=== PATIENT | male | born 1980 | race American Indian/Alaskan Native ===

== ENCOUNTER 2017-03-31 03:20 | Inpatient (IN) | payer MEDICAID, OTHER ==
[2017-03-31 03:20] VITALS: BMI 23.1
[2017-03-31 04:32] LABS: BASO % 0.3 % (0.0-2.0); EOS # 0.1 K/uL (0.0-0.7); EOS % 2.1 % (0.0-4.0); HEMOGLOBIN 10.1 g/dL (12.0-18.0); LYMPH # 1.1 K/uL (1.0-4.3); LYMPH % 25.2 % (20.0-40.0); MEAN CELL VOLUME 85.8 fL (80.0-94.0); MEAN CORPUSCULAR HEMOGLOBIN 27.3 pg (27.0-31.0); MEAN CORPUSCULAR HGB CONC 31.8 g/dL (33.0-37.0); MEAN PLATELET VOLUME 9.6 fL (7.2-11.7); MONO # 0.6 K/uL (0.0-0.8); MONO % 12.7 % (0.0-10.0); NEUT # 2.6 K/uL (1.8-7.0); NEUT % 59.7 % (50.0-75.0); RBC 3.69 Mil/uL (4.40-5.90); RED CELL DISTRIBUTION WIDTH 15.5 % (11.5-14.5); WHITE BLOOD COUNT 4.4 K/uL (4.8-10.8)
[2017-03-31 04:41] LABS: ALBUMIN 3.6 g/dL (3.5-5.0)
[2017-03-31 04:44] LABS: ALB/GLOB RATIO 0.9 (1.0-2.1); ALT/SGPT 18 U/L (21-72); AST/SGOT 38 U/L (17-59); BLOOD UREA NITROGEN 16 mg/dL (9-20); CALCIUM 8.8 mg/dl (8.6-10.4); GFR AFRICAN-AMERICAN > 60; GFR NON-AFRICAN AMERICAN > 60
[2017-03-31] MEDS ORDERED: Potassium Chloride 20 mEq ER Tab PO STA (05:36)
[2017-03-31] MEDS ORDERED: Potassium Chloride 20 mEq ER Tab PO ONE (05:43)
[2017-03-31 05:53] LABS: URINE BACTERIA RARE (<OCC); URINE BILIRUBIN NEGATIVE (NEGATIVE); URINE BLOOD NEGATIVE (NEGATIVE); URINE CLARITY Clear (Clear); URINE COLOR Yellow (YELLOW); URINE GLUCOSE (UA) 1+ mg/dL (Normal); URINE LEUKOCYTE ESTERASE NEG Leu/uL (Negative); URINE NITRATE NEGATIVE (NEGATIVE); URINE PROTEIN NEGATIVE (NEGATIVE); URINE UROBILINOGEN NORMAL mg/dL (0.2-1.0)
[2017-03-31 06:00] LABS: BARBITURATES, UR NEGATIVE (NEGATIVE); BENZODIAZEPINES, UR NEGATIVE (NEGATIVE)
--- NOTE | 2017-03-31 06:00 | C.PDOC ---
History Of Present Illness A 36 y/o male with a Hx of bipolar disorder, comes in feeling depressed and asking to be evaluated. Denies suicidal or homicidal ideation, or any physical complaints. Time Seen by Provider: 03/31/17 04:18 Chief Complaint (Nursing): Psychiatric Evaluation History Per: Patient History/Exam Limitations: no limitations Onset/Duration Of Symptoms: Hrs Current Symptoms Are (Timing): Still Present Suicide/Self Injury Attempted (Context): None Modifying Factor(s): None Severity: Mild Associated Symptoms: Depression. denies: Suicidal Thoughts, Suicidal Plan Involuntary Hold By: None Recent travel outside of the [place]: No Additional History Per: Patient Past Medical History Reviewed: Historical Data, Nursing Documentation, Vital Signs Vital Signs: Last Vital Signs Temp 97.7 F 03/31/17 03:31 Pulse 93 H 03/31/17 03:31 Resp 20 03/31/17 03:31 BP 126/78 03/31/17 03:31 Pulse Ox 97 03/31/17 06:01 - Medical History PMH: Anemia, Anxiety, Bipolar Disorder, Depression, HIV, HTN, Mitral Valve Prolapse, Schizophrenia, Seizures, Sickle Cell Disease, Sexually Transmitted Disease (hx syphillis and gonnorhea) Denies: Diabetes, Hepatitis, Chronic Kidney Disease - [facility] Procedures GROUP PSYCHOTHERAPY (10/15/16) INDIV PSYCHOTHERAPY FOR SUBSTANCE ABUSE TREATMENT, SUPPORT (04/29/16) INDIVIDUAL PSYCHOTHERAPY, SUPPORTIVE (06/22/16) MEDICATION MANAGEMENT (10/15/16) MEDS MGMT FOR SUBSTANCE ABUSE TREATMENT, ANTABUSE (04/29/16) Family History: States: Unknown Family Hx - Social History Hx Tobacco Use: No Hx Alcohol Use: No Hx Substance Use: Yes (crystal meth friday) - Immunization History Hx Tetanus Toxoid Vaccination: Yes Hx Influenza Vaccination: Yes Hx Pneumococcal Vaccination: Yes Review Of Systems Except As Marked, All Systems Reviewed And Found Negative. Constitutional: Negative for: Fever, Chills Cardiovascular: Negative for: Chest Pain Gastrointestinal: Negative for: Nausea, Vomiting, Abdominal Pain, Diarrhea Psych: Positive for: Depression. Negative for: Suicidal ideation, Other ( Homicidal ideation) Physical Exam - Physical Exam Appears: Non-toxic, No Acute Distress Skin: Warm, Dry Head: Atraumatic, Normacephalic Eye(s): bilateral: Normal Inspection Cardiovascular: Rhythm Regular Respiratory: Normal Breath Sounds, No Accessory Muscle Use, No Rales, No Rhonchi , No Wheezing Gastrointestinal/Abdominal: Soft, No Tenderness Neurological/Psych: Oriented x3, Normal Speech, Other (Awake and alert) ED Course And Treatment - Laboratory Results Result Diagrams: 03/31/17 04:29 03/31/17 04:29 O2 Sat by Pulse Oximetry: 97 (RA) Pulse Ox Interpretation: Normal Progress Note: Impression: A 36 y/o male comes in feeling depressed and asking to be evaluated. Plans: Blood labs, IV fluids, reassess. Pending crisis evaluation. Pt is in no acute distress at this time and is resting comfortably. Pt was instructed to follow up with PMD or clinic and return if symtpoms worsens. Disposition - Disposition Disposition Time: 06:48 Condition: STABLE - Clinical Impression Clinical Impression: Depression - Scribe Statement The provider has reviewed the documentation as recorded by the Scribe Nettie henry All medical record entries made by the Scribe were at my direction and personally dictated by me. I have reviewed the chart and agree that the record accurately reflects my personal performance of the history, physical exam, medical decision making, and the department course for this patient. I have also personally directed, reviewed, and agree with the discharge instructions and disposition. Physician Patient Turnover Patient Signed Over To: Karen Driver Handoff Comments: Pending crisis evaluation
[2017-03-31 06:02] LABS: OPIATES, UR NEGATIVE (NEGATIVE)
[2017-03-31 06:03] LABS: PHENCYCLIDINE, UR NEGATIVE (NEGATIVE)
[2017-03-31 07:18] VITALS: O2SAT 100
[2017-03-31] MEDS ORDERED: Bisacodyl 5mg EC Tab PO ONE (11:44)
[2017-03-31] MEDS: Divalproex 500 mg DR Tab PO SCH ×2 (12:08→18:25)
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
[2017-03-31] MEDS: GENVOYA PO SCH (15:49)
[2017-04-01] MEDS: Divalproex 500 mg DR Tab PO SCH ×2 (09:33→17:56)
[2017-04-01] MEDS: GENVOYA PO SCH (09:33)
--- NOTE | 2017-04-01 12:42 | PCM.PYCHPN ---
Psychiatric Progress Note - Psychiatric Progress Note Patient seen today, length of contact: 16 min Patient Chief Complaint: I am feeling lilly Problems Identified/Issues Discussed: Patient seen and evaluated, chart reviewed and discussed with the nurse. Patient remained disorganized and internally preoccupied. Patient remained isolated, confined and withdrawn. Patient still appears paranoid and delusional. He reports depressed mood but denies any feelings of hopelessness and helplessness. He is taking medication and denies any side effects. Supportive therapy and psychoeducation were given. Medication Change: No Medical Record Reviewed: Yes Mental Status Examination - Cognitive Function Orientation: Person, Place, Situation, Time Memory: Intact Attention: Poor Concentration: Poor Association: Loose Fund of Knowledge: Poor - Mood Mood: Depressed, Anxious - Affect Affect: Constricted, Depressed - Speech Speech: Soft - Formal Thought Process Formal Thought Process: Delusions, Paranoia, Loosening of associations - Suicidal Ideation Suicidal Ideation: No - Homicidal Ideation Homicidal Ideation: No Goal/Treatment Plan - Goal/Treatment Plan Need for Continued Stay: Discharge may exacerbated symptoms, Severe functional impairment Progress Toward Problem(s) and Goals/Treatment Plan: Schizoaffective disorder - depressed type Methamphetamine use d/o - severe/moderate Personality d/o - unspecified Schizoaffective/Depression: -CBt and supportive tx -Attend groups -Lexapro -Depakote -Support and psychoed Methamphetamine: -Support and psychoed -Attend groups and activities -VT for abstinence - Smoking Cessation Smoking Cessation Initiated: No
[2017-04-02] MEDS: GENVOYA PO SCH (11:20)
[2017-04-02] MEDS: Divalproex 500 mg DR Tab PO SCH ×2 (11:20→17:30)
--- NOTE | 2017-04-02 14:57 | PCM.PYCHPN ---
Psychiatric Progress Note - Psychiatric Progress Note Patient seen today, length of contact: 17 min Patient Chief Complaint: "I am feeling okay. I am a tired and congested." Problems Identified/Issues Discussed: The pt is seen, chart reviewed, case discussed with staff. Pt attended group today but did not attend yesterday. There is concern about living situation post dispatch due to the restraining order against the pt from his landlord. He has a court date in May. Pt plans to return to [facility]. He doesn't have a therapist at the moment but plans on seeing one. Support given, CBT and [place] used briefly. No new symptoms reported, improving but needs more time to stabilize. After care discussed, support and psychoeducation given. Medication Change: Yes Medical Record Reviewed: Yes Mental Status Examination - Cognitive Function Orientation: Person, Place, Situation, Time Memory: Intact Attention: WNL Concentration: Poor Association: WNL Fund of Knowledge: WNL - Mood Mood: Depressed, Anxious - Affect Affect: Constricted, Depressed - Speech Speech: Appropriate - Formal Thought Process Formal Thought Process: No Impairment - Suicidal Ideation Suicidal Ideation: No - Homicidal Ideation Homicidal Ideation: No Goal/Treatment Plan - Goal/Treatment Plan Need for Continued Stay: Discharge may exacerbated symptoms, Severe functional impairment Progress Toward Problem(s) and Goals/Treatment Plan: Schizoaffective disorder - depressed type Methamphetamine use d/o - severe/moderate Personality d/o - unspecified Schizoaffective/Depression: -CBt and supportive tx -Attend groups -Lexapro -Depakote -Support and psychoed Methamphetamine: -Support and psychoed -Attend groups and activities -IN for abstinence Estimated Date of D/C: 04/04/17
[2017-04-02] MEDS ORDERED: Magnesium Hydroxide Susp 30 ml UD PO ONE (18:00)
[2017-04-03 08:51] LABS: BASO % 0.6 % (0.0-2.0); EOS # 0.1 K/uL (0.0-0.7); EOS % 0.8 % (0.0-4.0); HEMOGLOBIN 11.9 g/dL (12.0-18.0); LYMPH # 1.3 K/uL (1.0-4.3); LYMPH % 18.3 % (20.0-40.0); MEAN CELL VOLUME 85.4 fL (80.0-94.0); MEAN CORPUSCULAR HEMOGLOBIN 27.6 pg (27.0-31.0); MEAN CORPUSCULAR HGB CONC 32.3 g/dL (33.0-37.0); MEAN PLATELET VOLUME 9.8 fL (7.2-11.7); MONO # 0.4 K/uL (0.0-0.8); MONO % 5.5 % (0.0-10.0); NEUT # 5.2 K/uL (1.8-7.0); NEUT % 74.8 % (50.0-75.0); NRBC % 0.1 % (0.0-2.0); RBC 4.29 Mil/uL (4.40-5.90); RED CELL DISTRIBUTION WIDTH 15.5 % (11.5-14.5)
[2017-04-03 09:04] LABS: ALBUMIN 3.8 g/dL (3.5-5.0)
[2017-04-03 09:06] LABS: GFR AFRICAN-AMERICAN > 60; GFR NON-AFRICAN AMERICAN > 60
[2017-04-03 09:07] LABS: ALB/GLOB RATIO 0.7 (1.0-2.1); ALT/SGPT 22 U/L (21-72); AST/SGOT 28 U/L (17-59); BLOOD UREA NITROGEN 18 mg/dL (9-20)
[2017-04-03 09:08] LABS: CALCIUM 9.1 mg/dl (8.6-10.4)
[2017-04-03] MEDS ORDERED: Pneumococcal 23-Valent Vaccine IM ONE (10:00)
[2017-04-03] MEDS: Divalproex 500 mg DR Tab PO SCH ×2 (11:16→22:35)
--- NOTE | 2017-04-03 15:24 | PCM.PYCHPN ---
Psychiatric Progress Note - Psychiatric Progress Note Patient seen today, length of contact: 16 min Patient Chief Complaint: "I am feeling okay, but I am still constipated. I am also worried about where to live after this." Problems Identified/Issues Discussed: The pt is seen, chart reviewed, case discussed with staff. Pt requests more medication for his constipation. He took his medications in the afternoon and said that he slept well. He is still very concerned about where to live after he is discharged and he has yet to reach out to his friends. Pt still plans to return to [facility]. Support given, CBT and PA used briefly. No new symptoms reported, improving slowly and needs more time. After care discussed, support and psychoeducation given. Medication Change: Yes Medical Record Reviewed: Yes Mental Status Examination - Cognitive Function Orientation: Person, Place, Situation, Time Memory: Intact Attention: WNL Concentration: WNL Association: WNL Fund of Knowledge: WNL - Mood Mood: Anxious - Affect Affect: Constricted - Speech Speech: Appropriate - Formal Thought Process Formal Thought Process: No Impairment - Suicidal Ideation Suicidal Ideation: No - Homicidal Ideation Homicidal Ideation: No Goal/Treatment Plan - Goal/Treatment Plan Need for Continued Stay: Discharge may exacerbated symptoms Progress Toward Problem(s) and Goals/Treatment Plan: Schizoaffective disorder - depressed type Methamphetamine use d/o - severe/moderate Personality d/o - unspecified Schizoaffective/Depression: -CBt and supportive tx -Attend groups -Lexapro -Depakote -Support and psychoed -[facility] Methamphetamine: -Support and psychoed -Attend groups and activities -PA for abstinence Estimated Date of D/C: 04/04/17
[2017-04-04] MEDS: GENVOYA PO SCH (09:47)
[2017-04-04] MEDS: Divalproex 500 mg DR Tab PO SCH ×2 (09:47→17:24)
--- NOTE | 2017-04-04 14:17 | PCM.PYCHPN ---
Psychiatric Progress Note - Psychiatric Progress Note Patient seen today, length of contact: 17 min Patient Chief Complaint: "I had a nosebleed in the night but right now I'm feeling okay. I'm still worried about my living situation after I leave." Problems Identified/Issues Discussed: The pt is seen, chart reviewed, case discussed with staff. Pt had epistaxis in the middle of the night. BP was checked and was slightly low. He took his medications yesterday afternoon and said that he slept well. He is still very concerned about where to live after he is discharged and he has yet to reach out to his friends. He wishes to go back to his apartment to get his phone and wants to see if he can still live there. He will follow up with SW to discuss next steps. Pt still plans to return to [facility]. Support given, CBT and [place] used briefly. No new symptoms reported, improving slowly and needs more time. After care discussed, support and psychoeducation given. Medication Change: Yes (Detox changes daily.) Medical Record Reviewed: Yes Mental Status Examination - Cognitive Function Orientation: Person, Place, Situation, Time Memory: Intact Attention: WNL Concentration: WNL Association: WNL Fund of Knowledge: WNL - Mood Mood: Anxious - Affect Affect: Constricted - Speech Speech: Appropriate - Formal Thought Process Formal Thought Process: No Impairment - Suicidal Ideation Suicidal Ideation: No - Homicidal Ideation Homicidal Ideation: No Goal/Treatment Plan - Goal/Treatment Plan Need for Continued Stay: Discharge may exacerbated symptoms Progress Toward Problem(s) and Goals/Treatment Plan: Schizoaffective disorder - depressed type Methamphetamine use d/o - severe/moderate Personality d/o - unspecified Schizoaffective/Depression: -CBt and supportive tx -Attend groups -Lexapro -Depakote -Support and psychoed -[facility] Methamphetamine: -Support and psychoed -Attend groups and activities -UT for abstinence Estimated Date of D/C: 04/07/17 If changed, why: Discharge may exacerbate symptoms
[2017-04-05] MEDS: Divalproex 500 mg DR Tab PO SCH ×2 (12:11→17:10)
--- NOTE | 2017-04-05 17:26 | PCM.PYCHPN ---
Psychiatric Progress Note - Psychiatric Progress Note Patient seen today, length of contact: 15 min Patient Chief Complaint: "I don't feel well" Problems Identified/Issues Discussed: The pt is seen, chart reviewed, case discussed with staff. Support given, CBT and MS used briefly re meth use No new symptoms reported, improving slowly and needs some more time No SEs from medications, risks discussed. After care discussed - still undecided about where he will live due to order of protection against him Medication Change: Yes (Detox changes daily.) Medical Record Reviewed: Yes Mental Status Examination - Cognitive Function Orientation: Person, Place, Situation, Time Memory: Intact Attention: WNL Concentration: WNL Association: WNL Fund of Knowledge: WNL - Mood Mood: Anxious - Affect Affect: Constricted - Speech Speech: Appropriate - Formal Thought Process Formal Thought Process: No Impairment - Suicidal Ideation Suicidal Ideation: No - Homicidal Ideation Homicidal Ideation: No Goal/Treatment Plan - Goal/Treatment Plan Need for Continued Stay: Discharge may exacerbated symptoms Progress Toward Problem(s) and Goals/Treatment Plan: Schizoaffective disorder - depressed type Methamphetamine use d/o - severe/moderate Personality d/o - unspecified Schizoaffective/Depression: -CBt and supportive tx -Attend groups -[facility] -Support and psychoed -[facility] Methamphetamine: -Support and psychoed -Attend groups and activities -MS for abstinence Estimated Date of D/C: 04/07/17
[2017-04-06] MEDS: Divalproex 500 mg DR Tab PO SCH ×2 (10:24→20:28)
[2017-04-06] MEDS: GENVOYA PO SCH (10:31)
--- NOTE | 2017-04-06 16:57 | PCM.PYCHPN ---
Psychiatric Progress Note - Psychiatric Progress Note Patient seen today, length of contact: 15 min Patient Chief Complaint: I'm good. Can go home today. Problems Identified/Issues Discussed: Patient seen. Chart reviewed. Case discussed with the staff. Issues related to illness and treatment were discussed with the patient. Reported compliant with treatment with no adverse affects. At the time of evaluation, patient was awake alert oriented 3, had no delusions, no auditory or visual hallucinations, no suicidal ideations or homicidal ideations. Patient had no new symptoms. Medical Problems: HIV Hemolytic anemia Diagnostic Results: Reviewed DSM 5 Symptoms Update: Improving with treatment Medication Change: No Medical Record Reviewed: Yes Mental Status Examination - Cognitive Function Orientation: Person, Place, Situation, Time Memory: Intact Attention: WNL Concentration: WNL Association: WNL Fund of Knowledge: WN Decription of patient's judgement and insights: Fair - Mood Mood: Neutral - Affect Affect: Constricted - Speech Speech: Appropriate - Formal Thought Process Formal Thought Process: No Impairment - Suicidal Ideation Suicidal Ideation: No - Homicidal Ideation Homicidal Ideation: No Goal/Treatment Plan - Goal/Treatment Plan Need for Continued Stay: Remain at risks for inpatient hospitalization, Discharge may exacerbated symptoms, Severe functional impairment Progress Toward Problem(s) and Goals/Treatment Plan: Patient education Supportive therapy Continue treatment as before Estimated Date of D/C: 04/07/17 - Smoking Cessation Smoking Cessation Initiated: No
[2017-04-07 09:38] VITALS: RESP 18
[2017-04-07] MEDS: GENVOYA PO SCH (10:08)
[2017-04-07] MEDS: Divalproex 500 mg DR Tab PO SCH ×2 (10:08→18:05)
--- NOTE | 2017-04-07 14:30 | PCM.PYCHPN ---
Psychiatric Progress Note - Psychiatric Progress Note Patient seen today, length of contact: 17 min Patient Chief Complaint: "I am feeling okay but I had another nosebleed." Problems Identified/Issues Discussed: The pt is seen, chart reviewed, case discussed with staff. Support given, CBT and [place] used briefly. No new symptoms reported, improving slowly and needs some more time No SEs from medications, risks discussed. After care discussed - still undecided about where he will live due to order of protection against him Medication Change: No Medical Record Reviewed: Yes Mental Status Examination - Cognitive Function Orientation: Person, Place, Situation, Time Memory: Intact Attention: WNL Concentration: WNL Association: [facility] Fund of Knowledge: WN - Mood Mood: Neutral - Affect Affect: Constricted - Speech Speech: Appropriate - Formal Thought Process Formal Thought Process: No Impairment - Suicidal Ideation Suicidal Ideation: No - Homicidal Ideation Homicidal Ideation: No Goal/Treatment Plan - Goal/Treatment Plan Need for Continued Stay: Remain at risks for inpatient hospitalization, Discharge may exacerbated symptoms, Severe functional impairment Progress Toward Problem(s) and Goals/Treatment Plan: Schizoaffective disorder - depressed type Methamphetamine use d/o - severe/moderate Personality d/o - unspecified Schizoaffective/Depression: -CBt and supportive tx -[facility] -[facility] and psychoed -[facility] Methamphetamine: -Support and psychoed -Attend groups and activities -CO for abstinence Estimated Date of D/C: 04/08/17 If changed, why: Discharge may exacerbate symptoms.
[2017-04-08 07:59] VITALS: BP 124/84; PULSE 96; TEMP 98.4
[2017-04-08] MEDS: GENVOYA PO SCH (09:29)
[2017-04-08] MEDS: Divalproex 500 mg DR Tab PO SCH (09:29)
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
== END 2017-04-08 11:07 | disposition home or self-care (01) | DRG 430 ==
LOC: C.ER 03:20 → C.5E 07:45
PROVIDERS: ADMIT Psychiatry & Neurology Psychiatry; ATTEND Psychiatry & Neurology Psychiatry
PROC: GZHZZZZ Group Psychotherapy (ICD-10-PCS; principal; 2017-03-31)
PROC: GZ58ZZZ Individual Psychotherapy, Cognitive-Behavioral (ICD-10-PCS; 2017-03-31)
PROC: GZ56ZZZ Individual Psychotherapy, Supportive (ICD-10-PCS; 2017-03-31)
DX: F25.1 Schizoaffective disorder, depressive type (principal); D58.9 Hereditary hemolytic anemia, unspecified; F15.90 Other stimulant use, unspecified, uncomplicated; Z21 Asymptomatic human immunodeficiency virus [HIV] infection status; Z91.14 Patient's other noncompliance with medication regimen; F41.9 Anxiety disorder, unspecified; R04.0 Epistaxis; R45.6 Violent behavior

== ENCOUNTER 2017-09-11 03:15 | Inpatient (IN) | payer MEDICAID, OTHER ==
[2017-09-11 03:16] VITALS: BMI 23.1
--- NOTE | 2017-09-11 03:47 | C.PDOC ---
History Of Present Illness The patient presents to the ED for psychiatric evaluation, stating he has been feeling anxious and depressed for a couple days. Patient was evaluated at [facility] for diarrhea and HIV (currently not taking medicine) . Patient was found to have viral load of 40. Patient denies fever, chills, suicidal/homicidal ideation at this time. Time Seen by Provider: 09/11/17 03:46 Chief Complaint (Nursing): Psychiatric Evaluation History Per: Patient History/Exam Limitations: no limitations Onset/Duration Of Symptoms: Days Current Symptoms Are (Timing): Still Present Suicide/Self Injury Attempted (Context): None Modifying Factor(s): None Severity: None Pain Scale Rating Of: 0 Associated Symptoms: Anxiety, Depression. denies: Suicidal Thoughts, Suicidal Plan Involuntary Hold By: None Recent travel outside of the [place]: No Additional History Per: Patient Past Medical History Reviewed: Historical Data, Nursing Documentation, Vital Signs - Medical History PMH: Anemia, Anxiety, Bipolar Disorder, Depression, HIV, HTN, Schizophrenia, Seizures, Sickle Cell Disease, Sexually Transmitted Disease Denies: Diabetes, Hepatitis, Chronic Kidney Disease Comment Only: Mitral Valve Prolapse (mv regurgitation) Surgical History: No Surg Hx - [facility] Procedures GROUP PSYCHOTHERAPY (03/31/17) INDIV PSYCHOTHERAPY FOR SUBSTANCE ABUSE TREATMENT, SUPPORT (04/29/16) INDIVIDUAL PSYCHOTHERAPY, COGNITIVE-BEHAVIORAL (03/31/17) INDIVIDUAL PSYCHOTHERAPY, SUPPORTIVE (03/31/17) MEDICATION MANAGEMENT (10/15/16) MEDS MGMT FOR SUBSTANCE ABUSE TREATMENT, ANTABUSE (04/29/16) Family History: States: Unknown Family Hx - Social History Hx Tobacco Use: No Hx Alcohol Use: No Hx Substance Use: Yes - Immunization History Hx Tetanus Toxoid Vaccination: Yes Hx Influenza Vaccination: Yes Hx Pneumococcal Vaccination: Yes Review Of Systems Constitutional: Negative for: Fever, Chills Cardiovascular: Negative for: Chest Pain, Palpitations Respiratory: Negative for: Cough, Shortness of Breath Gastrointestinal: Negative for: Nausea, Vomiting, Abdominal Pain Skin: Negative for: Rash, Lesions, Jaundice, Bruising Neurological: Negative for: Weakness, Numbness Psych: Positive for: Anxiety, Depression. Negative for: Suicidal ideation Physical Exam - Physical Exam Appears: Non-toxic, Other (anxious ) Skin: Warm, Dry Chest: Symmetrical, No Deformity, No Tenderness Cardiovascular: Rhythm Regular, No Murmur Respiratory: No Accessory Muscle Use, No Rales, No Rhonchi, No Wheezing Extremity: Normal ROM Neurological/Psych: Oriented x3 Gait: Steady ED Course And Treatment - Laboratory Results Result Diagrams: 09/11/17 04:01 09/11/17 04:01 Progress Note: Bloodwork and UA ordered. Disposition Discussed With Dr.: Marybeth Berman Comment: accepted the pt on his service and took over the care at 5:30 AM Counseled Patient/Family Regarding: Studies Performed, Diagnosis - Disposition Disposition: HOSPITALIZED Disposition Time: 03:47 Condition: FAIR Forms: [facility] (Yakut) - POA Present On Arrival: None - Clinical Impression Clinical Impression: Bipolar 1 disorder - Scribe Statement The provider has reviewed the documentation as recorded by the Scribe (Teresa Monroe) Provider Attestation: All medical record entries made by the Scribe were at my direction and personally dictated by me. I have reviewed the chart and agree that the record accurately reflects my personal performance of the history, physical exam, medical decision making, and the department course for this patient. I have also personally directed, reviewed, and agree with the discharge instructions and disposition. Decision To Admit - Pt Status Changed To: Hospital Disposition Of: Inpatient - Admit Certification Admit to Inpatient:: After my assessment, the patient will require hospitalization for at least two midnights. This is because of the severity of symptoms shown, intensity of services needed, and/or the medical risk in this patient being treated as an outpatient. - InPatient: Physician Admission Certification: I certify that this patient requires 2 or more midnights of care for the following reason:: After my assessment, the patient will require hospitalization for at least two midnights. This is because of the severity of symptoms shown, intensity of services needed, and/or the medical risk in this patient being treated as an outpatient. - . Bed Request Type: Psychiatry Admitting Physician: Marybeth Berman Patient Diagnosis: Bipolar 1 disorder
[2017-09-11 04:06] LABS: BASO # 0.1 K/uL (0.0-0.2); BASO % 1.1 % (0.0-2.0); EOS # 1.2 K/uL (0.0-0.7); EOS % 14.1 % (0.0-4.0); HEMATOCRIT 34.2 % (35.0-51.0); MEAN CELL VOLUME 83.3 fL (80.0-94.0); MEAN CORPUSCULAR HEMOGLOBIN 27.1 pg (27.0-31.0); MEAN CORPUSCULAR HGB CONC 32.6 g/dL (33.0-37.0); MEAN PLATELET VOLUME 9.3 fL (7.2-11.7); MONO # 0.2 K/uL (0.0-0.8); NRBC % 0.1 % (0.0-2.0); RBC URINE 3 /hpf (0-3); RED CELL DISTRIBUTION WIDTH 15.5 % (11.5-14.5); URINE BILIRUBIN NEGATIVE (NEGATIVE); URINE BLOOD NEGATIVE (NEGATIVE); URINE COLOR Amber (YELLOW); URINE GLUCOSE (UA) NORMAL (Normal); URINE KETONE NEGATIVE (NEGATIVE); URINE LEUKOCYTE ESTERASE NEG Leu/uL (Negative); URINE PROTEIN 1+ mg/dL (NEGATIVE); WBC URINE 2 /hpf (0-5); WHITE BLOOD COUNT 8.5 K/uL (4.8-10.8)
[2017-09-11 04:16] LABS: ALCOHOL SERUM < 10 mg/dl (0-10); ALKALINE PHOSPHATASE 159 U/L (38-126); ALT/SGPT 51 U/L (21-72); AST/SGOT 68 U/L (17-59); BILIRUBIN,TOTAL 0.7 mg/dL (0.2-1.3); BLOOD UREA NITROGEN 13 mg/dL (9-20); CALCIUM 8.2 mg/dl (8.6-10.4); CARBON DIOXIDE 27 mmol/L (22-30); CHLORIDE 105 mmol/L (98-107); GFR AFRICAN-AMERICAN > 60; GLUCOSE,RANDOM 71 mg/dL (75-110); POTASSIUM 3.4 mmol/L (3.6-5.2); SODIUM 138 mmol/L (132-148); TOTAL PROTEIN 10.4 g/dL (6.3-8.3)
--- NOTE | 2017-09-11 06:35 | PCM.BM ---
<Clyde Granados - Last Filed: 09/11/17 06:32> Treatment Plan Problems - Problems identified on initial assessmt Depression Date Initiated: 09/11/17 Time Initiated: 06:20 Assessment reference: NA Status: Active Suicidal Ideation Date Initiated: 09/11/17 Time Initiated: 06:20 Assessment reference: NA Status: Active Treatment assets and liabiliti Patient Assests: adapts well, cooperative, self-reliant, ADL independent, negotiates basic needs, cognitively intact Patient Liabilities: financial problems, poor support system, substance abuse, medical problems - Milieu Protocol Maintain good personal hygiene: daily Encourage regular showers, daily Remind patient to perform daily oral care, daily Assist patient to perform ADL's Maintain personal safety: every shift Educate patient to report safety concerns to staff, every shift Monitor environment for contraband/sharps Medication safety: Monitor for expected outcome, potential side effects: every shift, Assess barriers to learning: every shift, Assess readiness for medication education: every shift <Jyoti Dill - Last Filed: 09/11/17 12:49> - Diagnosis (1) Schizoaffective disorder Status: Acute Interventions: 09/11/17 12:49 * Assess/adjust medications daily and /or as needed * See patient on an individual basis 7x/week to assess symptoms of depression * Monitor for side effects & effectiveness of medications * (2) Methamphetamine abuse Status: Acute Interventions: 09/11/17 12:50 * Assess 7x/week regarding severity of withdrawal * Educate regarding risks, benefits, side effects and alternatives of medications * Use Motivational Interviewing for abstinence * Use CBT for relapse prevention * Medication management for withdrawal symptoms * Encourage medication assisted treatment * <Lisette Aguilar - Last Filed: 09/12/17 11:48> Family Contact Family involvement: Famliy/SO not involved - Goals for Treatment Patient goals for treatment: "I don't feel well." Discharge/Continuing Care - Education Needs Education Needs: Patient Medication, Patient Coping Skills, Patient Community resources - Discharge Discharge Criteria: Tolerates medication w/o severe side effects, No longer exhibiting s/s of withdrawal, Reduction of target symptoms Discharge to:: Home - Treatment Team Participation Discussed with Family/SO: No Was Patient/Family/SO present at Treatment Team Meeting: Yes
[2017-09-11 06:51] LABS: ALB/GLOB RATIO 0.6 (1.0-2.1)
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
[2017-09-11] MEDS ORDERED: Potassium Chloride 20 mEq ER Tab PO ONE ×2 (16:03→17:45)
[2017-09-11] MEDS ORDERED: Penicillin G Benzathine 2.4 Mill Unit/4 ml Syr IM ONE ×2 (16:33→18:30)
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
--- NOTE | 2017-09-12 09:19 | CP.PCM.PN ---
<Sherine Oliver - Last Filed: 09/12/17 16:11> Subjective - Date & Time of Evaluation Date of Evaluation: 09/12/17 Time of Evaluation: 09:19 - Subjective Subjective: Medicine Progress Note for Dr. Thibodeaux Patient was seen and examined at bedside in no acute distress. Patient was laying comfortably in bed. Patient reports he soiled himself overnight, but otherwise has no other complaints. Review of system otherwise negative. It was suggested and discussed with patient that he should receive a brain MRI or brain imagining, however, both today and yesterday, patient refused. Patient is otherwise medically stable. Medicine team is signing off; re-consult as necessary. Objective - Vital Signs/Intake and Output Vital Signs (last 24 hours): Temp Pulse Resp BP Pulse Ox 98 F 100 H 16 131/79 98 09/11/17 07:54 09/11/17 17:18 09/11/17 07:54 09/11/17 17:18 09/11/17 07:54 - Medications Medications: Current Medications Azithromycin (Zithromax) 1,200 mg PO QWK [facility] Escitalopram Oxalate (Lexapro) 10 mg PO DAILY [facility] Last Admin: 09/11/17 12:50 Dose: 10 mg Gabapentin (Neurontin) 300 mg PO BID [facility] Last Admin: 09/11/17 18:31 Dose: 300 mg Hydroxyzine HCl (Atarax) 50 mg PO Q6H PRN PRN Reason: Anxiety Pneumococcal Polyvalent Vaccine (Pneumovax 23 Vaccine) 0.5 ml IM .ONCE ONE Stop: 09/13/17 10:01 Tramadol HCl (Ultram) 50 mg PO Q8H PRN PRN Reason: Pain, severe (8-10) Last Admin: 09/11/17 12:49 Dose: 50 mg Trazodone HCl (Desyrel) 100 mg PO HS PRN PRN Reason: Insomnia - Labs Labs: 09/11/17 04:01 09/11/17 04:01 - Constitutional Appears: No Acute Distress - Head Exam Head Exam: ATRAUMATIC, NORMAL INSPECTION - Eye Exam Eye Exam: EOMI, Normal appearance - ENT Exam ENT Exam: Mucous Membranes Moist - Respiratory Exam Respiratory Exam: Clear to Ausculation Bilateral, NORMAL BREATHING PATTERN. absent: Rales, Rhonchi, Wheezes, Respiratory Distress - Cardiovascular Exam Cardiovascular Exam: REGULAR RHYTHM, +S1, +S2 - GI/Abdominal Exam GI & Abdominal Exam: Soft, Tenderness (mild; all 4 quadrants; no facial grimacing noted with palpation), Normal Bowel Sounds. absent: Distended - Extremities Exam Extremities Exam: Normal Inspection - Neurological Exam Neurological Exam: Alert, Awake - Psychiatric Exam Psychiatric exam: Flat Affect - Skin Skin Exam: Intact, Normal Color, Warm Assessment and Plan - Assessment and Plan (Free Text) Plan: Assessment & Plan (1) HIV (human immunodeficiency virus infection) Assessment and Plan: * Self reported CD4 count of 86 in 07/2017 * Discussed with patient: patient should follow up as outpatient with [facility] at [facility] ([facility]] for continued care and to f/u HIV-1 RNA Quant and f/u CXR PA/ Lateral * Hepatitis panel- negative Status: Acute Priority: High (2) History of syphilis Assessment and Plan: * Self reported history of syphilis * CT Head 04[place]2017 [place] [facility] [place]: Nonspecific white matter changes. * RPR: nonreactive * Discussed with patient: patient should follow up as outpatient with [facility] at [facility]] for continued care and to F/U FTA-ABS, GC and Chlamydia RNA * Meds: * Penicillin G 2.4 million units IM ONCE 09/11 Status: Acute (3) Depression Assessment and Plan: Management and treatment as per psychiatry team * Escitalopram 10mg PO QD * Gabapentin 300mg PO BID * Hydroxyzine 50mg PO Q8H PRN * Tramasol 50mg PO Q8H PRN * Trazodone 100mg PO HS PRN Status: Acute Priority: High (4) Anxiety Assessment and Plan: * Management and treatment as per psychiatry team Status: Acute Priority: High (5) Methamphetamine abuse Assessment and Plan: * Management and treatment as per psychiatry team Status: Acute Priority: High Disposition: Spoke with patient about having brain imaging to r/o neurosyphilis , however, patient refuses. Discussed with patient that he should follow up as outpatient with [facility] at [facility] for further outpatient care. Patient is medically stable and should continue treatment as per psychiatry. Medicine team signing off. Reconsult as needed. <Ney Thibodeaux - Last Filed: 09/12/17 18:01> Objective - Vital Signs/Intake and Output Vital Signs (last 24 hours): Temp Pulse Resp BP Pulse Ox 97.5 F L 86 20 103/63 99 09/12/17 11:29 09/12/17 16:09 09/12/17 11:29 09/12/17 16:09 09/12/17 11:29 - Medications Medications: Current Medications Azithromycin (Zithromax) 1,200 mg PO QWK [facility] Last Admin: 09/12/17 09:49 Dose: 1,200 mg Escitalopram Oxalate (Lexapro) 10 mg PO DAILY [facility] Last Admin: 09/12/17 09:49 Dose: 10 mg Gabapentin (Neurontin) 300 mg PO BID [facility] Last Admin: 09/12/17 17:03 Dose: 300 mg Hydroxyzine HCl (Atarax) 50 mg PO Q6H PRN PRN Reason: Anxiety Pneumococcal Polyvalent Vaccine (Pneumovax 23 Vaccine) 0.5 ml IM .ONCE ONE Stop: 09/13/17 10:01 Tramadol HCl (Ultram) 50 mg PO Q8H PRN PRN Reason: Pain, severe (8-10) Last Admin: 09/12/17 17:03 Dose: 50 mg Trazodone HCl (Desyrel) 100 mg PO HS PRN PRN Reason: Insomnia - Labs Labs: 09/12/17 11:21 09/12/17 11:21 Attending/Attestation - Attestation I have personally seen and examined this patient.: Yes I have fully participated in the care of the patient.: Yes I have reviewed all pertinent clinical information, including history, physical exam and plan: Yes Notes (Text): 09/12/17 18:01 Medical consult: Patient is seen and examined with the medical social worker, I agreed with the above note by the resident after I reviewed it. The patient's lab work including CBC and CMP was reviewed did not show any acute findings. Was afebrile, heart rate and blood pressure stable. According to the staff on taking care of the patient be observed him walking around in the hallway Like yesterday, we asked if he is interested in getting MRI to assess for the potential of neurosyphilis. He again said he does not want the MRI. We did adminster Pen G IM 2,4 million units At this moment the patient does not need any acute interventions. As mentioned previously we ordered HIV viral load, CD4 cell count, as well as a CD8 count as well. At some point the patient if is staying in [place] we he will have to follow-up at the [facility] and future referrals to infectious disease - however from what I understand he is from [place] and has recently been getting his medication from there and care there so if he returns here he should resume all over the thank you Ney Thibodeaux
[2017-09-12 11:29] LABS: BASO % 0.7 % (0.0-2.0); EOS # 0.1 K/uL (0.0-0.7); HEMATOCRIT 30.7 % (35.0-51.0); LYMPH # 1.2 K/uL (1.0-4.3); LYMPH % 20.5 % (20.0-40.0); MEAN CELL VOLUME 82.4 fL (80.0-94.0); MEAN CORPUSCULAR HEMOGLOBIN 26.7 pg (27.0-31.0); MEAN CORPUSCULAR HGB CONC 32.4 g/dL (33.0-37.0); MEAN PLATELET VOLUME 9.5 fL (7.2-11.7); MONO # 0.7 K/uL (0.0-0.8); MONO % 11.7 % (0.0-10.0); NRBC % 0.1 % (0.0-2.0); RED CELL DISTRIBUTION WIDTH 15.5 % (11.5-14.5)
[2017-09-12 11:30] VITALS: RESP 20
[2017-09-12 11:45] LABS: ALB/GLOB RATIO 0.6 (1.0-2.1); ALKALINE PHOSPHATASE 127 U/L (38-126); ALT/SGPT 35 U/L (21-72); AST/SGOT 52 U/L (17-59); BILIRUBIN,TOTAL 0.4 mg/dL (0.2-1.3); BLOOD UREA NITROGEN 15 mg/dL (9-20); CALCIUM 8.3 mg/dl (8.6-10.4); CARBON DIOXIDE 27 mmol/L (22-30); CHLORIDE 105 mmol/L (98-107); GFR AFRICAN-AMERICAN > 60; GLUCOSE,RANDOM 86 mg/dL (75-110); MAGNESIUM 1.5 mg/dL (1.6-2.3); PHOSPHOROUS 2.9 mg/dL (2.5-4.5); POTASSIUM 4.1 mmol/L (3.6-5.2); SODIUM 137 mmol/L (132-148); TOTAL PROTEIN 9.4 g/dL (6.3-8.3)
--- NOTE | 2017-09-12 13:23 | PCM.PYCHPN ---
Psychiatric Progress Note - Psychiatric Progress Note Patient seen today, length of contact: 16 min Patient Chief Complaint: "I am weak" Problems Identified/Issues Discussed: The pt is seen, chart reviewed, case discussed with staff. Support given, CBT and DE used briefly No new symptoms reported, improving slowly and needs more time No SEs from medications, risks discussed. After care discussed, still interested in [facility] after his med/psych issues taken care of. He agrees to skip his court on Friday if he must stay here. A letter will be provided Medication Change: Yes Medical Record Reviewed: Yes Mental Status Examination - Cognitive Function Orientation: Person, Place, Situation, Time Memory: Intact Attention: Poor Concentration: Poor Association: WNL Fund of Knowledge: WNL - Mood Mood: Depressed, Anxious - Affect Affect: Constricted - Formal Thought Process Formal Thought Process: No Impairment - Suicidal Ideation Suicidal Ideation: No - Homicidal Ideation Homicidal Ideation: No Goal/Treatment Plan - Goal/Treatment Plan Need for Continued Stay: Discharge may exacerbated symptoms, Severe functional impairment Progress Toward Problem(s) and Goals/Treatment Plan: Lexapro for depression Gabapentin for anxiety Trazodone for sleep Ultram for pain Med consult for medical issues appreciated Attend groups and activities Individual therapy daily Psychoeducation and support daily Encourage compliance with meds and after care Refer to outpatient program Teach healthy lifestyle methods, i.e. diet, exercise, meditation Smoking cessation and patch Estimated Date of D/C: 09/17/17
--- NOTE | 2017-09-12 19:04 | RAD ---
HISTORY: HIV w/ non-compliance COMPARISON: No prior. TECHNIQUE: Chest PA and lateral FINDINGS: LUNGS: No active pulmonary disease. PLEURA: No significant pleural effusion identified. No pneumothorax apparent. CARDIOVASCULAR: No radiographic findings to suggest acute or significant cardiovascular disease. Incidental Finding(s): Postoperative changes related to sternotomy. Associated aortic mitral valve prostheses noted. OSSEOUS STRUCTURES: No significant abnormalities. VISUALIZED UPPER ABDOMEN: Normal. OTHER FINDINGS: None. IMPRESSION: No active disease.
[2017-09-13 05:57] VITALS: O2SAT 97
[2017-09-13 07:38] LABS: BASO % 0.6 % (0.0-2.0); EOS # 0.1 K/uL (0.0-0.7); EOS % 1.3 % (0.0-4.0); HEMATOCRIT 30.1 % (35.0-51.0); LYMPH # 1.2 K/uL (1.0-4.3); LYMPH % 17.5 % (20.0-40.0); MEAN CELL VOLUME 82.6 fL (80.0-94.0); MEAN CORPUSCULAR HEMOGLOBIN 27.2 pg (27.0-31.0); MEAN CORPUSCULAR HGB CONC 32.9 g/dL (33.0-37.0); MEAN PLATELET VOLUME 8.7 fL (7.2-11.7); MONO # 0.8 K/uL (0.0-0.8); MONO % 11.7 % (0.0-10.0); RED CELL DISTRIBUTION WIDTH 15.1 % (11.5-14.5); WHITE BLOOD COUNT 6.8 K/uL (4.8-10.8)
[2017-09-13 07:58] LABS: ALB/GLOB RATIO 0.8 (1.0-2.1); ALKALINE PHOSPHATASE 126 U/L (38-126); ALT/SGPT 41 U/L (21-72); AST/SGOT 47 U/L (17-59); BILIRUBIN,TOTAL 0.4 mg/dL (0.2-1.3); BLOOD UREA NITROGEN 15 mg/dL (9-20); CALCIUM 8.1 mg/dl (8.6-10.4); CARBON DIOXIDE 26 mmol/L (22-30); CHLORIDE 105 mmol/L (98-107); GFR AFRICAN-AMERICAN > 60; GLUCOSE,RANDOM 97 mg/dL (75-110); MAGNESIUM 1.1 mg/dL (1.6-2.3); PHOSPHOROUS 3.1 mg/dL (2.5-4.5); POTASSIUM 4.1 mmol/L (3.6-5.2); SODIUM 136 mmol/L (132-148); TOTAL PROTEIN 7.9 g/dL (6.3-8.3)
[2017-09-13] MEDS ORDERED: Pneumococcal 23-Valent Vaccine IM ONE (10:00)
[2017-09-13] MEDS ORDERED: Influenza Vaccine 60 mcg/0.5 mL SYR (4YR UP) IM ONE (10:00)
--- NOTE | 2017-09-13 15:37 | PCM.PYCHPN ---
Psychiatric Progress Note - Psychiatric Progress Note Patient seen today, length of contact: 15 minutes Patient Chief Complaint: I am better. Problems Identified/Issues Discussed: Patient seen, chart reviewed, case discussed with the staff. Issues related to illness and treatment were discussed with the patient. Reported compliant with treatment with no adverse effects. Feeling much better with the treatment. Aftercare discussed with the patient. At the time of evaluation, patient was awake alert oriented 3. Denied any delusions, no auditory or visual hallucinations, no suicidal ideations or homicidal ideations. Medical Problems: HIV Hemolytic anemia Diagnostic Results: Reviewed DSM 5 Symptoms Update: Improving with treatment. Medication Change: No Medical Record Reviewed: Yes Consults ordered or reviewed: Reviewed Mental Status Examination - Cognitive Function Orientation: Person, Place, Situation, Time Memory: Intact Attention: WNL Concentration: WNL Association: WNL Fund of Knowledge: [facility] Decription of patient's judgement and insights: Fair - Mood Mood: Anxious - Affect Affect: Other (Appropriate) - Speech Speech: Appropriate - Formal Thought Process Formal Thought Process: No Impairment - Suicidal Ideation Suicidal Ideation: No - Homicidal Ideation Homicidal Ideation: No Goal/Treatment Plan - Goal/Treatment Plan Need for Continued Stay: Remain at risks for inpatient hospitalization, Discharge may exacerbated symptoms, Severe functional impairment Progress Toward Problem(s) and Goals/Treatment Plan: Improving. Patient education. Supportive therapy. Continue treatment as before. Estimated Date of D/C: 09/17/17 - Smoking Cessation Smoking Cessation Initiated: No
[2017-09-14 08:20] LABS: BASO % 0.7 % (0.0-2.0); EOS # 0.1 K/uL (0.0-0.7); EOS % 1.4 % (0.0-4.0); HEMATOCRIT 30.7 % (35.0-51.0); LYMPH # 1.2 K/uL (1.0-4.3); LYMPH % 23.1 % (20.0-40.0); MEAN CELL VOLUME 82.2 fL (80.0-94.0); MEAN CORPUSCULAR HEMOGLOBIN 27.6 pg (27.0-31.0); MEAN CORPUSCULAR HGB CONC 33.6 g/dL (33.0-37.0); MEAN PLATELET VOLUME 10.1 fL (7.2-11.7); MONO # 0.5 K/uL (0.0-0.8); MONO % 10.1 % (0.0-10.0); NRBC % 0.2 % (0.0-2.0); RED CELL DISTRIBUTION WIDTH 14.8 % (11.5-14.5)
[2017-09-14 08:21] LABS: ALB/GLOB RATIO 0.8 (1.0-2.1); ALKALINE PHOSPHATASE 130 U/L (38-126); ALT/SGPT 37 U/L (21-72); AST/SGOT 43 U/L (17-59); BILIRUBIN,TOTAL 0.5 mg/dL (0.2-1.3); BLOOD UREA NITROGEN 18 mg/dL (9-20); CALCIUM 8.1 mg/dl (8.6-10.4); CARBON DIOXIDE 28 mmol/L (22-30); CHLORIDE 103 mmol/L (98-107); GFR AFRICAN-AMERICAN > 60; GLUCOSE,RANDOM 80 mg/dL (75-110); MAGNESIUM 1.2 mg/dL (1.6-2.3); PHOSPHOROUS 4.2 mg/dL (2.5-4.5); SODIUM 138 mmol/L (132-148)
--- NOTE | 2017-09-14 13:44 | CP.PCM.PN ---
Subjective - Date & Time of Evaluation Date of Evaluation: 09/14/17 Time of Evaluation: 13:00 - Subjective Subjective: THIS IS A BRIEF NOTE: I came by to see patient. Per nursing he has been walking around, eating and then returns to his room. He has not interacted much with other patients on the floor. I again had another discussion with wardricardo to his HIV. As mentioned previously he does not want MRI of the brain to be done to assess for neuro- syphyllis. We also do not have the FTA-ABS, HIV Qnt RNA or CD4/CD8 subset return. I asked him if after here he plans on returning to [place] or stay in [place] and he says he most definaly is not going to be in [place] and returing to [place]. I encouraged patient to follow up with his previous HIV clinic/center If for some reason he does stay in [place] I advised patient to follow up at the [facility] for results of his HIV. I told him this As mentioned previously he was given Pen G IM 2,4 million units IM. thank you Ney Thibodeaux Objective - Vital Signs/Intake and Output Vital Signs (last 24 hours): Temp Pulse Resp BP Pulse Ox 99.6 F 91 H 20 104/69 97 09/14/17 06:04 09/14/17 06:04 09/14/17 06:04 09/14/17 06:04 09/14/17 06:04 - Medications Medications: Current Medications Azithromycin (Zithromax) 1,200 mg PO QWK [facility] Last Admin: 09/12/17 09:49 Dose: 1,200 mg Escitalopram Oxalate (Lexapro) 10 mg PO DAILY [facility] Last Admin: 09/14/17 09:37 Dose: 10 mg Gabapentin (Neurontin) 300 mg PO BID [facility] Last Admin: 09/14/17 09:37 Dose: 300 mg Hydroxyzine HCl (Atarax) 50 mg PO Q6H PRN PRN Reason: Anxiety Last Admin: 09/14/17 00:01 Dose: 50 mg Tramadol HCl (Ultram) 50 mg PO Q8H PRN PRN Reason: Pain, severe (8-10) Last Admin: 09/14/17 00:01 Dose: 50 mg Trazodone HCl (Desyrel) 100 mg PO HS PRN PRN Reason: Insomnia - Labs Labs: 09/14/17 08:01 09/14/17 08:01
--- NOTE | 2017-09-14 16:51 | PCM.PYCHPN ---
Psychiatric Progress Note - Psychiatric Progress Note Patient seen today, length of contact: 15 minutes Patient Chief Complaint: "I'm feeling better" Problems Identified/Issues Discussed: Patient was seen. Chart was reviewed important content noted. Nurse input received. Patient has no new complaints. No events overnight. Patient slept well and is eating well. Patient reproted improvement in his depressive symptoms. Denies suicidal or homicidal ideations. Patient does not report hallucinations. No delusions elicited. No paranoia elicited. Patient has remained in good clinical and behavioral control. Symptoms are improving, but needs more time to stabilize. Patient is finding medications beneficial and would like to continue with treatment plan. Patient appreciated that treatment team is trying to help. DSM 5 Symptoms Update: Schizoaffective d/o - depressed Amphetamine use d/o - severe Medication Change: Yes Medical Record Reviewed: Yes Mental Status Examination - Cognitive Function Orientation: Person, Place, Situation, Time Memory: Intact Attention: Poor Concentration: Poor Association: WNL Fund of Knowledge: WNL Decription of patient's judgement and insights: good/good - Mood Mood: Depressed, Neutral - Affect Affect: Constricted - Speech Speech: Appropriate - Formal Thought Process Formal Thought Process: No Impairment Psychotic Thoughts and Behaviors: denied - Suicidal Ideation Suicidal Ideation: No - Homicidal Ideation Homicidal Ideation: No Goal/Treatment Plan - Goal/Treatment Plan Need for Continued Stay: Discharge may exacerbated symptoms, Severe functional impairment Progress Toward Problem(s) and Goals/Treatment Plan: Continue current management and medications. Patient educated about risks, benefits, side effects & alternatives of meds. Pt verbalized understanding & agreed with the above.~ Therapy in milieu. Estimated Date of D/C: 09/17/17 - Smoking Cessation Smoking Cessation Initiated: Yes
[2017-09-15 08:45] LABS: BASO % 0.6 % (0.0-2.0); EOS # 0.1 K/uL (0.0-0.7); EOS % 1.2 % (0.0-4.0); HEMATOCRIT 31.9 % (35.0-51.0); LYMPH # 1.2 K/uL (1.0-4.3); LYMPH % 18.8 % (20.0-40.0); MEAN CELL VOLUME 81.9 fL (80.0-94.0); MEAN CORPUSCULAR HEMOGLOBIN 27.2 pg (27.0-31.0); MEAN CORPUSCULAR HGB CONC 33.2 g/dL (33.0-37.0); MONO # 0.6 K/uL (0.0-0.8); MONO % 10.3 % (0.0-10.0); NRBC % 0.1 % (0.0-2.0); RED CELL DISTRIBUTION WIDTH 15.2 % (11.5-14.5); WHITE BLOOD COUNT 6.2 K/uL (4.8-10.8)
[2017-09-15 09:03] LABS: ALB/GLOB RATIO 0.8 (1.0-2.1); ALKALINE PHOSPHATASE 141 U/L (38-126); ALT/SGPT 37 U/L (21-72); AST/SGOT 43 U/L (17-59); BILIRUBIN,TOTAL 0.5 mg/dL (0.2-1.3); BLOOD UREA NITROGEN 16 mg/dL (9-20); CALCIUM 8.4 mg/dl (8.6-10.4); CARBON DIOXIDE 32 mmol/L (22-30); CHLORIDE 101 mmol/L (98-107); GFR AFRICAN-AMERICAN > 60; GLUCOSE,RANDOM 81 mg/dL (75-110); MAGNESIUM 1.4 mg/dL (1.6-2.3); POTASSIUM 4.5 mmol/L (3.6-5.2); SODIUM 137 mmol/L (132-148); TOTAL PROTEIN 8.8 g/dL (6.3-8.3)
--- NOTE | 2017-09-15 15:20 | PCM.PYCHPN ---
Psychiatric Progress Note - Psychiatric Progress Note Patient seen today, length of contact: 15 minutes Patient Chief Complaint: " I am doing well, i have no complaints" Problems Identified/Issues Discussed: The pt is seen, chart reviewed, case discussed with staff. Support given, CBT and MN used briefly No new symptoms reported, improving slowly and needs more time No SEs from medications, risks discussed. Patient states that his depressive symptoms are improving and doing well on his treatment plan Medication Change: Yes Medical Record Reviewed: Yes Mental Status Examination - Cognitive Function Orientation: Person, Place, Situation, Time Memory: Intact Attention: WNL Concentration: WNL Association: WN Fund of Knowledge: WN - Mood Mood: Depressed, Neutral - Affect Affect: Constricted - Speech Speech: Appropriate - Formal Thought Process Formal Thought Process: No Impairment - Suicidal Ideation Suicidal Ideation: No - Homicidal Ideation Homicidal Ideation: No Goal/Treatment Plan - Goal/Treatment Plan Need for Continued Stay: Discharge may exacerbated symptoms, Severe functional impairment Progress Toward Problem(s) and Goals/Treatment Plan: Lexapro for depression Gabapentin for anxiety Trazodone for sleep Ultram for pain Med consult for medical issues appreciated Attend groups and activities Individual therapy daily Psychoeducation and support daily Encourage compliance with meds and after care Refer to outpatient program Teach healthy lifestyle methods, i.e. diet, exercise, meditation Estimated Date of D/C: 09/17/17
--- NOTE | 2017-09-15 15:20 | PCM.PYCHPN ---
Psychiatric Progress Note - Psychiatric Progress Note Patient seen today, length of contact: 15 minutes Medication Change: Yes Medical Record Reviewed: Yes Mental Status Examination - Cognitive Function Orientation: Person, Place, Situation, Time Memory: Intact Attention: Poor Concentration: Poor Association: WNL Fund of Knowledge: WNL - Mood Mood: Depressed, Neutral - Affect Affect: Constricted - Speech Speech: Appropriate - Formal Thought Process Formal Thought Process: No Impairment - Suicidal Ideation Suicidal Ideation: No - Homicidal Ideation Homicidal Ideation: No Goal/Treatment Plan - Goal/Treatment Plan Need for Continued Stay: Discharge may exacerbated symptoms, Severe functional impairment Estimated Date of D/C: 09/17/17
--- NOTE | 2017-09-16 16:04 | PCM.PYCHPN ---
Psychiatric Progress Note - Psychiatric Progress Note Patient seen today, length of contact: 15 minutes Patient Chief Complaint: " I am doing well, i have no complaints" Problems Identified/Issues Discussed: The pt is seen, chart reviewed, case discussed with staff. Support given, CBT and SD used briefly No new symptoms reported, improving slowly and needs more time No SEs from medications, risks discussed. Patient states that his depressive symptoms are improving and doing well on his treatment plan. As per nursing, patient is more vibrant and gets out of his room more. Medication Change: Yes Medical Record Reviewed: Yes Mental Status Examination - Cognitive Function Orientation: Person, Place, Situation, Time Memory: Intact Attention: WNL Concentration: WNL Association: WN Fund of Knowledge: WNL - Mood Mood: Depressed (Mild depressive mood ), Neutral - Affect Affect: Constricted - Speech Speech: Appropriate - Formal Thought Process Formal Thought Process: No Impairment - Suicidal Ideation Suicidal Ideation: No - Homicidal Ideation Homicidal Ideation: No Goal/Treatment Plan - Goal/Treatment Plan Need for Continued Stay: Discharge may exacerbated symptoms, Severe functional impairment Progress Toward Problem(s) and Goals/Treatment Plan: Lexapro for depression Gabapentin for anxiety Trazodone for sleep Ultram for pain Med consult for medical issues appreciated Attend groups and activities Individual therapy daily Psychoeducation and support daily Encourage compliance with meds and after care Refer to outpatient program Teach healthy lifestyle methods, i.e. diet, exercise, meditation Estimated Date of D/C: 09/17/17 - Smoking Cessation Smoking Cessation Initiated: No
[2017-09-17 06:23] VITALS: BP 100/64; PULSE 86; TEMP 97.7
--- NOTE | 2017-09-17 15:55 | PCM.PYCHDC ---
Mental Status Examination - Mental Status Examination Orientation: Place, Situation, Time Memory: Intact Mood: Neutral, Other (Improved, stable ) Affect: Other (Normal ) Attention: WNL Concentration: WNL Formal Thought Process: No Impairment Suicidal Ideation: No Current Homicidal Ideation?: No Discharge Summary - Discharge Note Reason for Hospitalization: Depression and methamphetamine use Consultations:: List each consultation separately and include: 1. Reason for request. 2. Findings. 3. Follow-up Summary of Hospital Course include:: 1. Description of specific treatment plan utilized for patients during their course of treatmen. 2. Summarize the time- course for resolution of acute symptoms and/or regressed behaviors. 3. Describe issues identified and worked on during hospitalization. 4. Describe medication utilized. 5. Describe medical problems identified and treated. 6. Reassessment of suicide risk Summary of Hospital Course: Patient was admitted and started on treatment with psychotherapy, support, psychoeducation and medications OK and CBT used Patient attended groups and activities Patient sometimes remained in his room alot but slowly started to come out of his room more often over the course of admission All the risks and benefits of medications are discussed and the patient understood and agreed Patient improved with the treatments provided - Final Diagnosis (DSM 5) Condition upon Discharge: FAIR Disposition: HOME/ ROUTINE Follow-up Treatment Plan: Continue below medications after discharge. Follow after care plan as discussed. Patient is to follow up with [facility] Use relapse prevention skills Return to ER or call 911 if suicidal, homicidal or symptoms relapse. Stay away from stress, alcohol and drugs. See primary doctor as instructed Continue healthy lifestyle methods as discussed during admission Prescriptions/Medication Reconciliation: Azithromycin [Zithromax] 1,200 mg PO QWK #4 tab Escitalopram [Lexapro] 10 mg PO DAILY #30 tab Gabapentin [Neurontin] 300 mg PO BID #60 cap traZODone [Desyrel] 100 mg PO HS PRN #30 tab PRN Reason: Insomnia - Antipsychotic Medications Pt discharged on 2 or more routine antipsychotic medications: No
== END 2017-09-17 13:15 | disposition home or self-care (01) | DRG 430 ==
LOC: C.ER 03:15 → C.5E 05:42
PROVIDERS: ADMIT Psychiatry & Neurology Psychiatry; ATTEND Psychiatry & Neurology Psychiatry
PROC: GZ3ZZZZ Medication Management (ICD-10-PCS; principal; 2017-09-11)
PROC: GZHZZZZ Group Psychotherapy (ICD-10-PCS; 2017-09-11)
PROC: GZ56ZZZ Individual Psychotherapy, Supportive (ICD-10-PCS; 2017-09-11)
DX: F25.9 Schizoaffective disorder, unspecified (principal); F15.10 Other stimulant abuse, uncomplicated; B20 Human immunodeficiency virus [HIV] disease; D57.1 Sickle-cell disease without crisis; A53.9 Syphilis, unspecified; D58.9 Hereditary hemolytic anemia, unspecified; F31.9 Bipolar disorder, unspecified; F41.9 Anxiety disorder, unspecified; G40.909 Epilepsy, unspecified, not intractable, without status epilepticus; I10 Essential (primary) hypertension; I34.1 Nonrheumatic mitral (valve) prolapse; Z91.19 Patient's noncompliance with other medical treatment and regimen; Z95.2 Presence of prosthetic heart valve

== ENCOUNTER 2018-02-24 18:55 | Emergency (ER) | payer MEDICAID, OTHER ==
[2018-02-24 18:56] VITALS: BMI 23.1
--- NOTE | 2018-02-24 19:41 | C.PDOC ---
History Of Present Illness 37 y/o male presents to ED stating " I have issues with my hoahaoism, radha and identity". Patient states he is in a manic phase and denies suicidal ideation, homicidal ideation or any other complaints at this time. Time Seen by Provider: 02/24/18 19:40 Chief Complaint (Nursing): Psychiatric Evaluation History Per: Patient History/Exam Limitations: no limitations Onset/Duration Of Symptoms: Days Current Symptoms Are (Timing): Still Present Suicide/Self Injury Attempted (Context): None Modifying Factor(s): None Severity: Mild Pain Scale Rating Of: 2 Associated Symptoms: denies: Suicidal Thoughts, Suicidal Plan Involuntary Hold By: None Recent travel outside of the [place]: No Additional History Per: Patient Past Medical History Reviewed: Historical Data, Nursing Documentation, Vital Signs Vital Signs: Last Vital Signs Temp 98.8 F 02/24/18 19:14 Pulse 92 H 02/24/18 19:14 Resp 18 02/24/18 19:14 BP 111/75 02/24/18 19:14 Pulse Ox 100 02/24/18 21:17 - Medical History PMH: Anemia, Anxiety, Bipolar Disorder, Depression, HIV, HTN, Schizophrenia, Seizures, Sickle Cell Disease, Sexually Transmitted Disease Comment Only: Mitral Valve Prolapse (mv regurgitation) Surgical History: No Surg Hx - [facility] Procedures GROUP PSYCHOTHERAPY (09/11/17) INDIV PSYCHOTHERAPY FOR SUBSTANCE ABUSE TREATMENT, SUPPORT (04/29/16) INDIVIDUAL PSYCHOTHERAPY, COGNITIVE-BEHAVIORAL (03/31/17) INDIVIDUAL PSYCHOTHERAPY, SUPPORTIVE (09/11/17) MEDICATION MANAGEMENT (09/11/17) MEDS MGMT FOR SUBSTANCE ABUSE TREATMENT, ANTABUSE (04/29/16) Family History: States: No Known Family Hx - Social History Hx Tobacco Use: No Hx Alcohol Use: No Hx Substance Use: Yes (crystal meth) - Immunization History Hx Tetanus Toxoid Vaccination: Yes Hx Influenza Vaccination: Yes Hx Pneumococcal Vaccination: Yes Review Of Systems Constitutional: Negative for: Fever, Chills Cardiovascular: Negative for: Chest Pain Respiratory: Negative for: Shortness of Breath Gastrointestinal: Negative for: Nausea, Vomiting Psych: Negative for: Depression, Suicidal ideation, Withdrawal Physical Exam - Physical Exam Appears: Non-toxic, Other (Anxious ) Skin: Warm, Dry, No Rash Head: Normacephalic Oral Mucosa: Moist Neck: Supple Cardiovascular: Rhythm Regular Respiratory: No Rales, No Rhonchi, No Wheezing Gastrointestinal/Abdominal: Soft, No Tenderness, No Guarding, No Rebound Back: No CVA Tenderness, No Paraspinal Tenderness Neurological/Psych: Oriented x3 ED Course And Treatment - Laboratory Results Result Diagrams: 02/24/18 20:47 02/24/18 20:47 ECG: Interpreted By Me, Viewed By Me ECG Rhythm: Sinus Rhythm (81), Nonspecific Changes O2 Sat by Pulse Oximetry: 100 (RA) Pulse Ox Interpretation: Normal - Radiology CXR: Interpreted by Me, Viewed By Me CXR Interpretation: Yes: Other (cabg). No: Infiltrates, Fracture, Pnemothorax Progress Note: Patient was cleared for discharge by dr Lerma Reevaluation Time: 21:57 Reassessment Condition: Improved Disposition Counseled Patient/Family Regarding: Studies Performed, Diagnosis, Need For Followup - Disposition Referrals: [place] [facility] [Outside] Disposition: HOME/ ROUTINE Disposition Time: 19:41 Condition: FAIR Instructions: Bipolar Disorder (DC) Forms: [facility] (Greenlandic) - Clinical Impression Clinical Impression: Bipolar 1 disorder - Scribe Statement The provider has reviewed the documentation as recorded by the Scribe Jorge Whittington All medical record entries made by the Scribe were at my direction and personally dictated by me. I have reviewed the chart and agree that the record accurately reflects my personal performance of the history, physical exam, medical decision making, and the department course for this patient. I have also personally directed, reviewed, and agree with the discharge instructions and disposition.
[2018-02-24 20:52] LABS: BASO # 0.1 K/uL (0.0-0.2); BASO % 1.2 % (0.0-2.0); EOS # 0.1 K/uL (0.0-0.7); EOS % 1.5 % (0.0-4.0); HEMOGLOBIN 8.7 g/dL (12.0-18.0); LYMPH # 1.8 K/uL (1.0-4.3); LYMPH % 23.6 % (20.0-40.0); MEAN CELL VOLUME 86.6 fL (80.0-94.0); MEAN CORPUSCULAR HEMOGLOBIN 29.4 pg (27.0-31.0); MEAN PLATELET VOLUME 9.9 fL (7.2-11.7); MONO # 0.8 K/uL (0.0-0.8); MONO % 10.9 % (0.0-10.0); NEUT # 4.8 K/uL (1.8-7.0); NEUT % 62.8 % (50.0-75.0); RBC 2.97 Mil/uL (4.40-5.90); WHITE BLOOD COUNT 7.7 K/uL (4.8-10.8)
[2018-02-24 20:58] LABS: SQUAMOUS EPITHIAL < 1 /hpf (0-5); URINE BACTERIA RARE (<OCC); URINE BILIRUBIN NEGATIVE (NEGATIVE); URINE BLOOD NEGATIVE (NEGATIVE); URINE CLARITY Clear (Clear); URINE COLOR Yellow (YELLOW); URINE GLUCOSE (UA) NORMAL (Normal); URINE LEUKOCYTE ESTERASE NEG Leu/uL (Negative); URINE PROTEIN NEGATIVE (NEGATIVE); URINE UROBILINOGEN NORMAL mg/dL (0.2-1.0)
[2018-02-24 21:04] LABS: ALB/GLOB RATIO 0.8 (1.0-2.1); ALBUMIN 3.6 g/dL (3.5-5.0); ALT/SGPT 9 U/L (21-72); AST/SGOT 40 U/L (17-59); BLOOD UREA NITROGEN 25 mg/dL (9-20); CALCIUM 8.4 mg/dl (8.6-10.4); GFR AFRICAN-AMERICAN > 60; GFR NON-AFRICAN AMERICAN > 60
[2018-02-24 21:09] LABS: BARBITURATES, UR NEGATIVE (NEGATIVE); BENZODIAZEPINES, UR NEGATIVE (NEGATIVE); OPIATES, UR NEGATIVE (NEGATIVE); PHENCYCLIDINE, UR NEGATIVE (NEGATIVE)
[2018-02-24 22:22] VITALS: BP 123/79; PULSE 97; RESP 17; TEMP 98.9; O2SAT 97
--- NOTE | 2018-02-25 09:52 | RAD ---
PROCEDURE: CHEST RADIOGRAPH, 1 VIEW HISTORY: psych clearance COMPARISON: 01/16/2016. FINDINGS: LUNGS: The lungs are well inflated and clear. No focal consolidation PLEURA: No pneumothorax or pleural fluid seen. CARDIOVASCULAR: There is persistent mild cardiomegaly. Status post CABG. OSSEOUS STRUCTURES: No significant abnormalities. VISUALIZED UPPER ABDOMEN: Normal. OTHER FINDINGS: None. IMPRESSION: No active pulmonary disease.
--- NOTE | 2018-02-27 05:40 | CARD ---
APPROVED REPORT EKG Measurement Heart [id number] <Conclusion> Normal sinus rhythm Normal ECG
== END 2018-02-24 22:22 | disposition home or self-care (01) ==
LOC: C.ER 18:55
DX: F31.9 Bipolar disorder, unspecified (principal); I10 Essential (primary) hypertension; D57.1 Sickle-cell disease without crisis

== ENCOUNTER 2019-01-27 21:17 | Inpatient (IN) | payer MEDICARE, MEDICAID ==
[2019-01-27 21:18] VITALS: BMI 22.1
--- NOTE | 2019-01-27 21:57 | C.PDOC ---
History Of Present Illness 38 year old male with Hx of bipolar disorder, AIDs, and endocarditis s/p valve replacement. Patient has not been on his psych meds for months and feels like he needs to be on medications again, states he feels off, having auditory h allucinations, and feels like he is a traffic risk. He is requesting "crisis intervention". Denies any physical complaints at this time. Time Seen by Provider: 01/27/19 21:38 Chief Complaint (Nursing): Psychiatric Evaluation History Per: Patient History/Exam Limitations: no limitations Onset/Duration Of Symptoms: Hrs Current Symptoms Are (Timing): Still Present Involuntary Hold By: None Recent travel outside of the [place]: No Past Medical History Reviewed: Historical Data, Nursing Documentation, Vital Signs Vital Signs: Last Vital Signs Temp 98.2 F 01/27/19 21:32 Pulse 94 H 01/27/19 21:32 Resp 20 01/27/19 21:32 BP 145/85 01/27/19 21:32 Pulse Ox 98 01/27/19 21:32 Primary Care Provider: Non [facility] Provider, - Medical History PMH: Anemia, Anxiety, Bipolar Disorder, Depression, HIV, HTN, Schizophrenia, Seizures, Sickle Cell Disease, Sexually Transmitted Disease Denies: Diabetes, Hepatitis, Chronic Kidney Disease Comment Only: Mitral Valve Prolapse (mv regurgitation) - [facility] Procedures GROUP PSYCHOTHERAPY (09/11/17) INDIV PSYCHOTHERAPY FOR SUBSTANCE ABUSE TREATMENT, SUPPORT (04/29/16) INDIVIDUAL PSYCHOTHERAPY, COGNITIVE-BEHAVIORAL (03/31/17) INDIVIDUAL PSYCHOTHERAPY, SUPPORTIVE (09/11/17) MEDICATION MANAGEMENT (09/11/17) MEDS MGMT FOR SUBSTANCE ABUSE TREATMENT, ANTABUSE (04/29/16) Family History: States: Unknown Family Hx - Social History Hx Tobacco Use: No Hx Alcohol Use: Yes Hx Substance Use: Yes (crystal meth) - Immunization History Hx Tetanus Toxoid Vaccination: Yes Hx Influenza Vaccination: Yes Hx Pneumococcal Vaccination: Yes Review Of Systems Constitutional: Negative for: Fever, Chills Cardiovascular: Negative for: Chest Pain, Palpitations Respiratory: Negative for: Cough, Shortness of Breath Gastrointestinal: Negative for: Nausea, Vomiting Neurological: Negative for: Weakness, Numbness Psych: Positive for: Other (Auditory hallucinations) Physical Exam - Physical Exam Appears: Non-toxic Skin: Normal Color, Warm, Dry Head: Atraumatic, Normacephalic Oral Mucosa: Moist Chest: Symmetrical, No Tenderness Cardiovascular: Rhythm Regular Respiratory: Normal Breath Sounds, No Rales, No Rhonchi, No Wheezing Gastrointestinal/Abdominal: Soft, No Tenderness Neurological/Psych: Oriented x3, Normal Speech ED Course And Treatment - Laboratory Results Result Diagrams: 01/27/19 22:09 01/27/19 22:09 Lab Interpretation: No Acute Changes O2 Sat by Pulse Oximetry: 98 (room air) Pulse Ox Interpretation: Normal Progress Note: Blood work and urinalysis ordered. Crisis notified. Patient is medically cleared for psychiatric admission. Disposition - Disposition Disposition Time: 01:38 Condition: STABLE - POA Present On Arrival: None - Clinical Impression Clinical Impression: Schizophrenia, Bipolar 1 disorder - Scribe Statement The provider has reviewed the documentation as recorded by the Scribe Boubacar Esposito All medical record entries made by the Scribe were at my direction and personally dictated by me. I have reviewed the chart and agree that the record accurately reflects my personal performance of the history, physical exam, medical decision making, and the department course for this patient. I have also personally directed, reviewed, and agree with the discharge instructions and disposition. Physician Patient Turnover Patient Signed Over To: Kaylee Mayorga Handoff Comments: pending psych disposition
[2019-01-27 22:14] LABS: BASO % 1.2 % (0.0-2.0); EOS # 0.1 K/uL (0.0-0.7); EOS % 1.4 % (0.0-4.0); LYMPH # 0.8 K/uL (1.0-4.3); LYMPH % 21.8 % (20.0-40.0); MEAN CELL VOLUME 88.2 fL (80.0-94.0); MEAN CORPUSCULAR HEMOGLOBIN 28.7 pg (27.0-31.0); MEAN CORPUSCULAR HGB CONC 32.6 g/dL (33.0-37.0); MONO # 0.5 K/uL (0.0-0.8); MONO % 12.9 % (0.0-10.0); NEUT # 2.4 K/uL (1.8-7.0); NEUT % 62.7 % (50.0-75.0); NRBC % 0.1 % (0.0-2.0); RBC 3.9 Mil/uL (4.40-5.90); RED CELL DISTRIBUTION WIDTH 15.5 % (11.5-14.5); WHITE BLOOD COUNT 3.8 K/uL (4.8-10.8)
[2019-01-27 22:26] LABS: ALBUMIN 4.6 g/dL (3.5-5.0); ALT/SGPT 29 U/L (21-72); AST/SGOT 69 U/L (17-59); BLOOD UREA NITROGEN 24 mg/dL (9-20); CALCIUM 9.7 mg/dl (8.6-10.4); GFR NON-AFRICAN AMERICAN > 60
[2019-01-27 22:28] LABS: HEMOGLOBIN 11.2 g/dL (12.0-18.0)
[2019-01-27 22:33] LABS: BARBITURATES, UR NEGATIVE (NEGATIVE); BENZODIAZEPINES, UR NEGATIVE (NEGATIVE); OPIATES, UR NEGATIVE (NEGATIVE); PHENCYCLIDINE, UR NEGATIVE (NEGATIVE)
[2019-01-27 22:35] LABS: URINE BILIRUBIN NEGATIVE (NEGATIVE); URINE CLARITY Clear (Clear); URINE COLOR Yellow (YELLOW); URINE GLUCOSE (UA) NORMAL (Normal)
[2019-01-27 22:36] LABS: SQUAMOUS EPITHIAL < 1 /hpf (0-5); URINE BLOOD NEGATIVE (NEGATIVE); URINE LEUKOCYTE ESTERASE NEG Leu/uL (Negative); URINE PROTEIN NEGATIVE (NEGATIVE); URINE UROBILINOGEN NORMAL mg/dL (0.2-1.0)
[2019-01-28 04:27] VITALS: O2SAT 100
--- NOTE | 2019-01-28 05:41 | PCM.BM ---
<Clyde Granados - Last Filed: 01/28/19 05:38> Treatment Plan Problems - Problems identified on initial assessmt AUDITORY HALLUCINATION Date Initiated: 01/28/19 Time Initiated: 05:00 Assessment reference: NA Status: Active HOPELESSNESS/ HELPLESSNESS/WORTHLESSNESS Date Initiated: 01/28/19 Time Initiated: 05:00 Assessment reference: NA Status: Active Treatment assets and liabiliti Patient Assests: adapts well, cooperative, educated, self-reliant, ADL indepen dent, negotiates basic needs, cognitively intact Patient Liabilities: live alone, financial problems, poor support system, dietary restrictions, substance abuse, medical problems, legal issue - Milieu Protocol Maintain good personal hygiene: daily Encourage regular showers, daily Remind patient to perform daily oral care, daily Assist patient to perform ADL's Conduct patient checks and document Observation sheet: Q15 minutes Maintain personal safety: every shift Educate patient to report safety concerns to staff, every shift Monitor environment for contraband/sharps Medication safety: Monitor for expected outcome, potential side effects: every shift, Assess barriers to learning: every shift, Assess readiness for medication education: every shift <Marybeth Berman - Last Filed: 01/29/19 11:25> - Diagnosis (1) Schizoaffective disorder Status: Acute Interventions: 01/29/19 11:25 * Assess/adjust medications daily and /or as needed * See patient on an individual basis 7x/week to assess status of hallucinations * Discuss risks, benefits, side effects and alternatives of medications * (2) Methamphetamine abuse Status: Acute Interventions: 01/29/19 11:25 * Assess 7x/week regarding severity of withdrawal * Educate regarding risks, benefits, side effects and alternatives of medicati ons * Use Motivational Interviewing for abstinence * Use CBT for relapse prevention * Medication management for withdrawal symptoms * Encourage medication assisted treatment * <Lisette Aguilar - Last Filed: 01/29/19 11:56> Family Contact Family involvement: Famliy/SO not involved - Goals for Treatment Patient goals for treatment: "I want to go back to my outpatient program in [place]." Discharge/Continuing Care - Education Needs Education Needs: Patient Medication, Patient Coping Skills, Patient Placement options, Patient Community resources - Discharge Discharge Criteria: Tolerates medication w/o severe side effects, Reduction of target symptoms [facility]charge to:: [facility] - Treatment Team Participation Discussed with Family/SO: No Was Patient/Family/SO present at Treatment Team Meeting: Yes
[2019-01-28] MEDS: Pantoprazole 20 mg EC Tab PO SCH (09:34)
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
[2019-01-28] MEDS: Divalproex 250 mg DR Tab PO SCH ×2 (11:36→17:26)
[2019-01-29 06:55] VITALS: RESP 18
[2019-01-29] MEDS: Divalproex 250 mg DR Tab PO SCH ×2 (09:22→17:11)
[2019-01-29] MEDS: Pantoprazole 20 mg EC Tab PO SCH (09:22)
--- NOTE | 2019-01-29 11:25 | PCM.PYCHPN ---
Psychiatric Progress Note - Psychiatric Progress Note Patient seen today, length of contact: 15 min Patient Chief Complaint: I m feeling depressed.' Problems Identified/Issues Discussed: Patient was seen and evaluated, chart reviewed and discussed with staff. He remained disorganized and preoccupied. He appears to have loose associations As per the staff he remained isolative and withdrawn and confined to his room. He reports depressed mood, irritability and agitation. He is taking medication but denies any side effects. He needs to stay longer for the stabilization of the symptoms. Supportive therapy was provided Medication Change: Yes Medical Record Reviewed: Yes Mental Status Examination - Cognitive Function Orientation: Person, Place, Situation, Time Memory: Intact Attention: WNL Concentration: Poor Association: Loose Fund of Knowledge: Poor - Mood Mood: Depressed, Anxious - Affect Affect: Constricted, Depressed - Speech Speech: Soft - Formal Thought Process Formal Thought Process: Hallucinations, Delusions, Paranoia, Loosening of associations - Suicidal Ideation Suicidal Ideation: No - Homicidal Ideation Homicidal Ideation: No Goal/Treatment Plan - Goal/Treatment Plan Need for Continued Stay: Remain at risks for inpatient hospitalization Progress Toward Problem(s) and Goals/Treatment Plan: Bipolar disorder mixed severe with psychotic features Rule out schizoaffective disorder bipolar type Methamphetamine use disorder severe CBT Supportive therapy Psychoeducation Depakote for mood Trazodone for insomnia Hydroxyzine for anxiety Fluphenazine for paranoia - Smoking Cessation Smoking Cessation Initiated: No
[2019-01-30] MEDS: Divalproex 250 mg DR Tab PO SCH ×2 (09:52→17:40)
[2019-01-30] MEDS: Pantoprazole 20 mg EC Tab PO SCH (09:52)
[2019-01-30] MEDS ORDERED: Pneumococcal 23-Valent Vaccine IM ONE (10:30)
--- NOTE | 2019-01-30 16:21 | PCM.PYCHPN ---
Psychiatric Progress Note - Psychiatric Progress Note Patient seen today, length of contact: 15 min Patient Chief Complaint: I am feeling better. Problems Identified/Issues Discussed: Patient seen, chart reviewed, case discussed with the staff. Issues related to illness and treatment were discussed with the patient and staff. Reported compliant with treatment with no adverse effects. Tolerating treatment very well. Patient reported feeling better. Mood reported as okay. Affect appropriate. Patient needs more time for stabilization. Aftercare discussed with the patient. Denied any delusions, auditory or visual hallucinations, no suicidal ideations or homicidal ideations at the time of evaluation. Medical Problems: HIV Diagnostic Results: Reviewed DSM 5 Symptoms Update: Some improvement with treatment. Medication Change: No Medical Record Reviewed: Yes Mental Status Examination - Cognitive Function Orientation: Person, Place, Situation, Time Memory: Intact Attention: WNL Concentration: WNL Association: WNL Fund of Knowledge: [facility] Decription of patient's judgement and insights: Fair - Mood Mood: Depressed - Affect Affect: Depressed - Speech Speech: Appropriate - Formal Thought Process Formal Thought Process: No Impairment Psychotic Thoughts and Behaviors: None - Suicidal Ideation Suicidal Ideation: No - Homicidal Ideation Homicidal Ideation: No Goal/Treatment Plan - Goal/Treatment Plan Need for Continued Stay: Remain at risks for inpatient hospitalization, Discharge may exacerbated symptoms, Severe functional impairment Progress Toward Problem(s) and Goals/Treatment Plan: Patient education. Supportive therapy. Continue treatment as before. Estimated Date of D/C: 02/03/19 - Smoking Cessation Smoking Cessation Initiated: No
[2019-01-30] MEDS ORDERED: Aluminum Hydroxide/Magnesium Hydroxide Susp (30 mL) PO PRN (19:19)
[2019-01-31] MEDS: Divalproex 250 mg DR Tab PO SCH ×2 (09:21→17:28)
[2019-01-31] MEDS: Pantoprazole 20 mg EC Tab PO SCH (09:22)
[2019-02-01] MEDS: Pantoprazole 20 mg EC Tab PO SCH (09:48)
[2019-02-01] MEDS: Divalproex 250 mg DR Tab PO SCH ×2 (09:48→17:15)
--- NOTE | 2019-02-01 12:01 | PCM.PYCHPN ---
Psychiatric Progress Note - Psychiatric Progress Note Patient seen today, length of contact: 15 min Patient Chief Complaint: I m feeling depressed.' Problems Identified/Issues Discussed: Patient was seen and evaluated, chart reviewed and discussed with staff. He remained disorganized and preoccupied. He appears to have loose associations As per the staff he remained isolative and withdrawn and confined to his room. He reports depressed mood, irritability and agitation. He is taking medication but denies any side effects. He needs to stay longer for the stabilization of the symptoms. Supportive therapy was provided Medication Change: No Medical Record Reviewed: Yes Mental Status Examination - Cognitive Function Orientation: Person, Place, Situation, Time Memory: Intact Attention: WNL Concentration: WNL Association: WNL Fund of Knowledge: WNL - Mood Mood: Depressed - Affect Affect: Depressed - Speech Speech: Appropriate - Formal Thought Process Formal Thought Process: No Impairment - Suicidal Ideation Suicidal Ideation: No - Homicidal Ideation Homicidal Ideation: No Goal/Treatment Plan - Goal/Treatment Plan Need for Continued Stay: Remain at risks for inpatient hospitalization, Discharge may exacerbated symptoms, Severe functional impairment Progress Toward Problem(s) and Goals/Treatment Plan: Bipolar disorder mixed severe with psychotic features Rule out schizoaffective disorder bipolar type Methamphetamine use disorder severe CBT Supportive therapy Psychoeducation Depakote for mood Trazodone for insomnia Hydroxyzine for anxiety Fluphenazine for paranoia Estimated Date of D/C: 02/03/19
[2019-02-02 07:09] VITALS: BP 114/80; PULSE 80; TEMP 97.5
[2019-02-02] MEDS: Pantoprazole 20 mg EC Tab PO SCH (09:29)
[2019-02-02] MEDS: Divalproex 250 mg DR Tab PO SCH (09:29)
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
== END 2019-02-02 11:21 | disposition home or self-care (01) | DRG 885 ==
LOC: C.ER 21:17 → C.5E 01-28 03:48
PROVIDERS: ADMIT Psychiatry & Neurology Psychiatry; ATTEND Psychiatry & Neurology Psychiatry
PROC: HZ52ZZZ Individual Psychotherapy for Substance Abuse Treatment, Cognitive-Behavioral (ICD-10-PCS; principal; 2019-01-28)
PROC: HZ59ZZZ Individual Psychotherapy for Substance Abuse Treatment, Supportive (ICD-10-PCS; 2019-01-28)
PROC: HZ56ZZZ Individual Psychotherapy for Substance Abuse Treatment, Psychoeducation (ICD-10-PCS; 2019-01-28)
PROC: HZ42ZZZ Group Counseling for Substance Abuse Treatment, Cognitive-Behavioral (ICD-10-PCS; 2019-01-28)
PROC: HZ46ZZZ Group Counseling for Substance Abuse Treatment, Psychoeducation (ICD-10-PCS; 2019-01-28)
PROC: GZHZZZZ Group Psychotherapy (ICD-10-PCS; 2019-01-28)
PROC: GZ58ZZZ Individual Psychotherapy, Cognitive-Behavioral (ICD-10-PCS; 2019-01-28)
PROC: GZ56ZZZ Individual Psychotherapy, Supportive (ICD-10-PCS; 2019-01-28)
DX: F31.64 Bipolar disorder, current episode mixed, severe, with psychotic features (principal); F15.20 Other stimulant dependence, uncomplicated; R45.851 Suicidal ideations; D57.1 Sickle-cell disease without crisis; F41.9 Anxiety disorder, unspecified; G47.00 Insomnia, unspecified; I10 Essential (primary) hypertension; I34.1 Nonrheumatic mitral (valve) prolapse; Z59.0 Homelessness; Z95.2 Presence of prosthetic heart valve; Z86.19 Personal history of other infectious and parasitic diseases; Z21 Asymptomatic human immunodeficiency virus [HIV] infection status